=== PATIENT | female | born 1960 | race Caucasian/White ===

== ENCOUNTER 2022-09-28 19:31 | Observation (INO) | payer OTHER ==
[2022-09-28 21:24] VITALS: RESP 18
[2022-09-28 21:31] LABS: HEMATOCRIT 42.2 % (32.4-45.2); HEMOGLOBIN 14.5 GM/dL (10.7-15.3); LYMPH % 51.9 % (8-40); MCH 29.5 pg (25.7-33.7); MCHC 34.3 g/dl (32.0-36.0); MEAN CELL VOLUME 85.9 fl (80-96); MEAN PLT VOLUME 8.7 fl (7.5-11.1); NEUT % 37.1 % (42.8-82.8); PLATELET COUNT 239 10^3/uL (134-434); RBC 4.92 M/mm3 (3.60-5.2); RDW 12.9 % (11.6-15.6); WHITE BLOOD COUNT 6.7 K/mm3 (4.0-10.0)
[2022-09-28 21:57] LABS: POTASSIUM 4.6 mmol/L (3.5-5.1)
[2022-09-28 21:59] LABS: CALCIUM 9.2 mg/dL (8.5-10.1); MAGNESIUM 2.2 mg/dL (1.8-2.4)
[2022-09-28 22:00] LABS: BLOOD UREA NITROGEN 14.5 mg/dL (7-18)
[2022-09-28 22:02] LABS: CREATININE 0.8 mg/dL (0.55-1.3)
[2022-09-28 22:04] LABS: BILIRUBIN,TOTAL 1.1 mg/dL (0.2-1); TOT PROT 7.6 g/dl (6.4-8.2)
[2022-09-28] MEDS ORDERED: SODIUM CHLORIDE 1,000 ML IV SCH (23:45)
[2022-09-29 01:26] VITALS: BMI 27.7
[2022-09-29] MEDS: INSULIN SLIDING SCALE (NOVOLOG) 1 VIAL SQ SCH ×2 (07:10→12:03)
[2022-09-29 08:53] LABS: HEMATOCRIT 39.3 % (32.4-45.2); HEMOGLOBIN 13.6 GM/dL (10.7-15.3); MCH 29.8 pg (25.7-33.7); MCHC 34.7 g/dl (32.0-36.0); MEAN CELL VOLUME 85.8 fl (80-96); MEAN PLT VOLUME 8.8 fl (7.5-11.1); PLATELET COUNT 213 10^3/uL (134-434); RBC 4.58 M/mm3 (3.60-5.2); RDW 12.5 % (11.6-15.6); WHITE BLOOD COUNT 5.1 K/mm3 (4.0-10.0)
[2022-09-29 09:01] LABS: POTASSIUM 4.1 mmol/L (3.5-5.1)
[2022-09-29 09:04] LABS: BLOOD UREA NITROGEN 13.2 mg/dL (7-18); CALCIUM 9.1 mg/dL (8.5-10.1)
[2022-09-29 09:06] LABS: CREATININE 0.7 mg/dL (0.55-1.3)
[2022-09-29 09:42] VITALS: BP 117/71; PULSE 53; TEMP 97.9
[2022-09-29] MEDS ORDERED: METOPROLOL TARTRATE 25 MG TABLET (FP) PO SCH (10:00)
[2022-09-29] MEDS ORDERED: ENOXAPARIN NA (PORCINE) 40 MG/0.4 ML DISP.SYRIN SQ SCH (10:00)
[2022-09-29] MEDS ORDERED: amLODIPine BESYLATE 5 MG TABLET (FP) PO SCH (10:00)
[2022-09-29] MEDS ORDERED: INSULIN (NOVOLOG) ASPART 100 UNITS/ML 10ML VIAL ONE (12:05)
== END 2022-09-29 15:11 | disposition home or self-care (01) ==
LOC: JER 19:31 → UNDOADMOB 23:07 → JERBED 23:07 → OBSVTOIN 23:48 → INTOOBSV 23:48 → J4W 09-29 00:31 → JERBED 09-29 00:31 → J4W 09-29 08:59 → JERBED 09-29 08:59
PROVIDERS: ADMIT Internal Medicine; ATTEND Internal Medicine
PROC: 3E013VG Introduction of Insulin into Subcutaneous Tissue, Percutaneous Approach (ICD-10-PCS; principal; 2022-09-29)
DX: R07.89 Other chest pain (principal); R00.1 Bradycardia, unspecified; E11.9 Type 2 diabetes mellitus without complications; I10 Essential (primary) hypertension; R00.2 Palpitations; E78.5 Hyperlipidemia, unspecified; I25.2 Old myocardial infarction
CPT/HCPCS: 36415; 71045-TC-FY; 80048; 80053; 82962; 83735; 84439; 84443; 84484; 85025; 85027; 85379; 93005; 93010; 93306-TC; 96372; 99285-25; G0378